=== PATIENT | male | born 1965 | race African-American/Black ===

== ENCOUNTER 2021-11-15 16:56 | Emergency (ER) | payer SELFPAY ==
[2021-11-15] MEDS ORDERED: Boostrix 0.5 ML (Tdap) VIAL ONE (17:43)
[2021-11-15] MEDS ORDERED: ceFAZolin 2 GM/Dextrose 50 ML IVPB ONE (17:58)
[2021-11-15 18:06] LABS: #Eosinphils 0.1 10x3/uL (0.0-0.5); #Monocytes 0.7 10x3/uL (0.0-1.1); #Neutrophils 5.5 10x3/uL (1.5-8.4); %Basophils 0.3 % (0.0-2.0); %Eosinophils 0.7 % (0.0-6.0); %Lymphocytes 11.9 % (18.0-47.0); %Monocytes 9.4 % (0.0-10.0); %Neutrophils 77.3 % (40.0-75.0); Hemoglobin 15.2 g/dL (13.5-17.5); Mean Corpuscular HGB CONC 33.5 g/dL (32.0-36.0); Mean Corpuscular Hemoglobin 30.4 pg (27.0-33.0); Mean Corpuscular Volume 90.8 fl (81.2-95.1); Mean Platelet Volume 8.7 fl (7.4-10.4); Platelet Count 250 10x3/uL (150-450); RBC Distribution Width 11.3 % (11.5-14.5); White Blood Cell (WBC) Count 7.1 10x3/uL (3.5-10.5)
[2021-11-15 18:13] LABS: Anion Gap 15 mmol/L (10-20); BUN (Urea Nitrogen) 9 mg/dL (8.4-25.7); Calc. Creatinine Clearance 0 mL/min (70-130); Calcium 9.1 mg/dL (7.8-10.44); Carbon Dioxide 21 mmol/L (22-29); Chloride 100 mmol/L (98-107); Glucose 122 mg/dL (70-105); Potassium 4.2 mmol/L (3.5-5.1); Sodium 132 mmol/L (136-145)
== END 2021-11-15 19:56 ==
LOC: CSHERS 16:56
DX: S82.451A Displaced comminuted fracture of shaft of right fibula, initial encounter for closed fracture (principal); I10 Essential (primary) hypertension; F17.210 Nicotine dependence, cigarettes, uncomplicated; W34.00XA Accidental discharge from unspecified firearms or gun, initial encounter; Z23 Encounter for immunization
CPT/HCPCS: 80048; 85025; 90471; 90715; 96365; G0390; J0690